=== PATIENT | female | born 2000 | race Caucasian/White ===

== ENCOUNTER 2019-07-29 17:10 | Emergency (ER) | payer SELFPAY ==
--- NOTE | 2019-07-29 17:23 | NUR ---
PT IS A NO ANSWER IN ER LOBBY ---WAS SEEN AMBULATING OUT OF THE ER BY ER ADMITTING
== END 2019-07-29 17:23 | disposition left against medical advice (07) ==
LOC: MED 17:10
DX: Z53.21 Procedure and treatment not carried out due to patient leaving prior to being seen by health care provider (principal)

== ENCOUNTER 2019-10-12 21:56 | Emergency (ER) | payer MEDICAID ==
[~2019-10-12] VITALS: Ht 157.5 cm; Wt 77.6 kg
--- NOTE | 2019-10-12 21:59 | NUR ---
PT AMBULATED TO ER BED 02
[2019-10-12 22:03] VITALS: BP 153/87
--- NOTE | 2019-10-12 22:08 | NUR ---
19 yo femalE CO CHEST PAIN THAT RADIATES TO HER BACK SINCE YESTERDAY. PT STATES PAIN IS 8/10 AT THIS TIME. PT ATTACHED TO MONITOR AND HEART SOUNDS NORMAL. PT HAS NO MED HX AND NO MED RX AT THIS TIME. PT IS LAYING IN BED WITH ONE SIDE RAIL UP FOR SAFETY
[2019-10-12 23:46] LABS: ALBUMIN 3.8 g/dL (3.4-5.0); ANION GAP 10.3 (8-16); CARBON DIOXIDE 29.5 mmol/L (21-32); CREATININE 0.8 mg/dL (0.6-1.3); POTASSIUM 3.8 mmol/L (3.5-5.1); TOTAL BILIRUBIN 0.2 mg/dL (0.0-1.0)
--- NOTE | 2019-10-13 | NUR ---
PATIENT LAYING SUPINE IN BED. FAMILY AT BEDSIDE. NO NEEDS STATED AT THIS TIME.
--- NOTE | 2019-10-13 00:55 | NUR ---
US AT BEDSIDE.
[2019-10-13 01:56] VITALS: BP 135/82
--- NOTE | 2019-10-13 01:57 | NUR ---
Patient discharged with v/s stable. Written and verbal after care instructions given and explained. Patient alert, oriented and verbalized understanding of instructions. Ambulatory with steady gait. All questions addressed prior to discharge. ID band removed. Patient advised to follow up with PMD. Rx of JIMMYROSANGEL CORTEZLANTA given. Patient educated on indication of medication including possible reaction and side effects. Opportunity to ask questions provided and answered.
== END 2019-10-13 01:57 | disposition home or self-care (01) ==
LOC: MED 21:56
DX: K80.20 Calculus of gallbladder without cholecystitis without obstruction (principal); R11.2 Nausea with vomiting, unspecified
CPT/HCPCS: 36415; 71045; 76705; 80053; 81002; 81025; 83690; 99285; Q0092; 93005

== ENCOUNTER 2021-08-05 16:00 | Emergency (ER) | payer MEDICAID, OTHER ==
[~2021-08-05] VITALS: Ht 157.5 cm; Wt 76.7 kg
[2021-08-05 16:07] VITALS: BP 146/79
[2021-08-05 17:00] LABS: BASOPHILS % (AUTO) 0.3 % (0.0-2.0); EOSINOPHILS # (AUTO) 0.1 K/uL (0-0.4); EOSINOPHILS % (AUTO) 1.4 % (0.0-4.0); HEMATOCRIT 39.5 % (36-48); HEMOGLOBIN 13.5 g/dL (12.0-16.0); LYMPHOCYTES % (AUTO) 22.4 % (20.5-51.1); MEAN CORPUSCULAR HEMOGLOBIN 30 pg (27-31); MEAN CORPUSCULAR HGB CONC 34 g/dL (33-37); MEAN CORPUSCULAR VOLUME 88.1 fL (80-94); MONOCYTES # (AUTO) 0.6 K/uL (0.8-1.0); MONOCYTES % (AUTO) 6.8 % (1.7-9.3); NEUTROPHILS # (AUTO) 6.1 K/uL (1.8-7.7); NEUTROPHILS % (AUTO) 69.1 % (42.2-75.2); PLATELET COUNT (AUTO) 329 K/uL (140-450); RED BLOOD CELL COUNT(AUTO) 4.48 MIL/uL (4.20-5.40); RED CELL DISTRIBUTION WIDTH 12.4 % (11.6-13.7); WHITE BLOOD COUNT (AUTO) 8.8 K/uL (4.8-10.8)
--- NOTE | 2021-08-05 17:14 | NUR ---
PT AMBULATED TO BED 11.
[2021-08-05 17:24] LABS: ALBUMIN 4.3 g/dL (3.4-5.0); ANION GAP 13.6 (8-16); CARBON DIOXIDE 25.7 mmol/L (21-32); POTASSIUM 4.3 mmol/L (3.5-5.1); TOTAL BILIRUBIN 0.4 mg/dL (0.0-1.0)
--- NOTE | 2021-08-05 17:30 | NUR ---
PT C/O EPIGASTRIC PAIN X1 WEEK N/V X3 DAYS. C/O 4/10 PAIN AT THIS TIME.
[2021-08-05] MEDS ORDERED: ACETAMINOPHEN EXTRA STRENGTH 500 MG TAB PO ONE (17:40)
[2021-08-05] MEDS ORDERED: ONDANSETRON 4 MG ODT PO ONE (17:40)
[2021-08-05] MEDS ORDERED: ALUMINUM HYD/MAG/SIMETHICONE 30 ML UDC PO ONE (17:40)
[2021-08-05] MEDS ORDERED: FAMOTIDINE 20 MG TAB PO ONE (17:40)
[2021-08-05 18:23] VITALS: BP 107/65
--- NOTE | 2021-08-05 18:59 | NUR ---
Patient discharged with v/s stable. Written and verbal after care instructions given and explained. Patient verbalized understanding. Ambulatory with steady gait. All questions addressed prior to discharge. Advised to follow up with PMD.
== END 2021-08-05 18:59 | disposition home or self-care (01) ==
LOC: MED 16:00
DX: K80.50 Calculus of bile duct without cholangitis or cholecystitis without obstruction (principal)
CPT/HCPCS: 36415; 76700; 80053; 81002; 81025; 83690; 85025; 99284; Q0092; Q0162